=== PATIENT | female | born 2000 | race Caucasian/White ===

== ENCOUNTER 2024-01-11 18:40 | Emergency (ER) | payer OTHER, SELFPAY ==
[2024-01-11 19:10] VITALS: BP 122/81; PULSE 81; RESP 16; TEMP 36.7; O2SAT 100
--- NOTE | 2024-01-11 19:30 | ED.EAR ---
HPI - Ear Problem General Chief complaint: Ear Stated complaint: ear pain Time Seen by Provider: 01/11/24 19:20 Source: patient, family, RN notes reviewed and old records reviewed Mode of arrival: ambulatory Limitations: no limitations History of Present Illness HPI Narrative: 23 year old female accompanied by mother presents to express care with complaints of right ear pain starting today with some runny nose for the past 2 weeks.Patient reports that she has not had any fevers, chills or body aches, denies any cough or sore throat. Patient is breast feeding and has not taken any medications for her symptoms. MD Complaint: ear pain Location: right ear Severity: moderate Associated symptoms ear: rhinorrhea and other (ear pain) Treatment prior to arrival: none Related Data Allergies Allergy/AdvReac Type Severity Reaction Status Date / Time Sulfa (Sulfonamide Allergy Swelling Verified 01/11/24 19:26 Antibiotics) ciprofloxacin [From Cipro] AdvReac Severe Rash Verified 01/29/23 14:17 bactrim Allergy Severe Rash Uncoded 01/29/23 14:17 Review of Systems Review of Systems: CONSTITUTIONAL: Denies malaise, chills, sweats, or fever. EYES: Denies visual changes, redness, or discharge. ENT: Reports rhinorrhea, congestion, no sinus pain,right otalgia and no sore throat. CARDIOVASCULAR: Denies chest pain, palpitations, or edema. RESPIRATORY: Reports no cough.? Denies dyspnea. GASTROINTESTINAL: Denies abdominal pain, nausea, vomiting, diarrhea SKIN: Denies rash or itching. MUSCULOSKELETAL: Denies myalgia. NEUROLOGIC: Denies headache. All systems reviewed & are unremarkable except as noted in HPI and below PMFSH Past Medical History Medical History Hypertension in Surgical History Surgical History History of placement of ear tubes as child Previous section Social History Social History Smoking status: Unknown if ever smoked Alcohol intake: current Substance use: never Substance use type: does not use Lack of Transportation: No Lack of Food: Never True Current Housing: I Have Housing Concerned About Future Housing: No Difficulty Paying Gas/Electric Bills: No Difficulty Paying for Meds: No Currently Unemployed: No Difficulty w/ Childcare or Family Care: No Living arrangements: with family Occupation/Education: occupation Gender identity (if verbalized by the patient): Female Sexual Orientation (if Verbalized by the Patient): Straight or Heterosexual Comments At time of signature, agree with nursing past medical, surgical, social and family history. There is no relevant family history pertinent to the presenting complaint Exam Narrative: GENERAL: Well-appearing, well-nourished, and in no acute distress. HEAD: Normocephalic EYES: PERRLA, conjunctivae clear ENT: Nares clear, turbinates edematous and erythematous, clear discharge. Mucous membranes moist Right TM red with purulent drainage ear canal red and inflamed.Left TM pearly villa with dull light reflex bilaterally; no tragal tenderness. Oropharynx erythematous without lesions. Tonsils not enlarged and without exudate, no drooling, no hoarseness, no trismus, uvula midline.post nasal drainage NECK: Supple. No lymphadenopathy CHEST: Clear to auscultation, breath sounds equal. No wheezing, rhonchi, rales, or stridor. No respiratory distress, speaks in full sentences.SAO2 100% on room air HEART: Regular rate and rhythm. No murmur heard. SKIN: Warm, dry, no rash. NEURO: Alert and oriented x3. PSYCH: Normal mood and affect Course Course Emergency Course: Patient is aware of diagnosis, understands and agrees to treatment plan.? Anticipatory guidance given.? Patient agrees to follow-up as directed and is aware of reasons to s
== END 2024-01-11 19:41 | disposition home or self-care (01) ==
PROVIDERS: Emergency Provider Registered Nurse; PCP Physician Assistant Medical
DX: H60.91 Unspecified otitis externa, right ear (principal); H66.91 Otitis media, unspecified, right ear
CPT/HCPCS: 99213; G0463

== ENCOUNTER 2024-12-17 08:33 | Emergency (ER) | payer BC, SELFPAY ==
--- OUTSIDE RECORDS SUMMARY | 2024-12-17 08:35 | XMS_ITS | Clinical Summary ---
Author Organization [facility] Address [address] [place] [address] Care Team Providers Care Newspaper Reporter Name Role Phone Unavailable Primary Care Provider Unavailabl e Source Comments [facility],non-owned Affiliates and Associated Physician Practices is amultiple site organization consisting of ambulatory clinics and hospital sitesin [place], [place], [place] and [place]. This disclosure is being madepursuant to the Care Everywhere program and may not contain all information available regarding this patient. Last updated 18.[facility] Allergies Active Allergy Reactions Criticality Noted Date Comments Sulfacetamide Urticaria,Rash,Swelling Medium 3 Medications * Be aware that medications may not be up to date on this document. Alwaysverify current medications with the patient. Vit-Fe Fumarate-FA ( vitamin) 28-0.8 MG tablet Take 1 (one) tablet by mouth once daily Active aspirin (Aspirin) 81 MG chew tablet Take 1 (one) tablet by mouth once daily Active labetalol (Normodyne; Trandate) 200 MG tablet Take 1 (one) tablet by mouth every 12 hours Active MAGNESIUM-POTASS IUM PO Active Active Problems Problem Noted Date Diagnosed Date [facility] Pre-existing essential hyper tension complicating in second trimester 03/31/2023 Social History Tobacco Use Types Packs/Day Years Used Date Smoking Tobacco: Never Assessed Tobacco Cessation:Counseling Given: Not Answered Comments No Sex and Gender Information Value Date Recorded Sex Assigned at Not on file Legal Sex Female 1:35 PM CDT Gender Identity Not on file Sexual Orientation Not on file Last Filed Vital Signs Vital Sign Reading Time Taken Comments Blood Pressure 143/89 03/24/2023 2:30 PM FIRE CAPTAIN Pulse 71 03/24/2023 2:30 PM FIRE CAPTAIN Temperature - - Respiratory Rate - - Oxygen Saturation - - Inhaled Oxygen Concentration - - Weight 76.8 kg (169 lb 6.4 oz) 03/24/2023 2:30 P M FIRE CAPTAIN Height 163.8 cm (5' 4.5) 03/24/2023 2:30 PM FIRE CAPTAIN Body Mass Index 28.63 03/24/2023 2:30 PM FIRE CAPTAIN Plan of Treatment Health Maintenance Due Date Last Done Comments HIV SCREENING 2013 HPV VACCINE (1 - 3-dose series) 2013 HEPATITIS C SCREENING 04/04/2016 DTAP/TDAP/TD VACCINES (1 - Tdap) 2017 HEPATITIS B VACCINE (1 of 3 - 19+ 3-dose series) 2017 PAP SMEAR 2019 COVID-19 VACCINE (3 - 2023-2 5 season) 2024 08/25/2020, 08/04/2020 DEPRESSION SCREENING 05/10/2024 INFLUENZA VACCINE (#1) 2025 ZOSTER VACCINE (1 of 2) 2048 HIB VACCINE Aged Out No longer eligi ble based on patient's age to complete this topic MENINGOCOCCAL (Group B) VACCINE SHARED DECISION-MAKING Aged Out No longer eligible based on patient's age to complete this topic MENINGOCOCCAL GROUPS A/C/Y/W VACCINE Aged Out No longer eligible b ased on patient's age to complete this topic PNEUMOCOCCAL VACCINE Aged Out No long er eligible based on patient's age to complete this topic Insurance [employer]
--- OUTSIDE RECORDS SUMMARY | 2024-12-17 08:35 | XMS_ITS | Clinical Summary ---
Author Organization [facility] Address [facility] [address] [place] [address] Care Team Providers Care Atm Mechanic Name Role Phone Ann Morocho PA-C Primary Care Provider [phone] Allergies Active Allergy Reactions Criticality Noted Date Comments Sulfa Antibiotics Rash Low 09/11/2022 Sulfacetamide Rash,Swelling,Hives Medium 03/22/2023 Medications vitamin, low iron, ( VITAMIN WITH IRON) 27-0.8 MG tablet Take 1 tablet by mouth daily. Active labetalol (NORMODYNE) 200 MG tablet Take 1 tablet (200 mg total) by mouth 2 (two) times daily. Active gabapentin (NEURONTIN) 300 MG capsule Take 1 capsule (300 mg total) by mouth every 8 (eight) hours. 12 capsule 07/25/2023 Active Active Problems Problem Noted Date Diagnosed Date ([facility]) 07/21/2023 Non-reassuring heart t ones complicating , antepartum ([facility]) 07/19/2023 Encounters Date Type Department Care Team Description 11/23/2024 8:15 AM CDT - 11/23/2024 11:59 PM CDT Hospital Encounter [facility] [address] [place] [address] Radha Perez MD Discharge Disposition: Home or Self Care (Routine Discharge) 11/23/2024 Orders Only [facility] [address] [place] [address] Radha Perez MD 11/23/2024 Travel from Last 3 Months Family History Relation Status Comments Father Alive Mother Alive Social History Tobacco Use Types Packs/Day Years Used Date Smoking Tobacco: Never Smokeless Tobacco: Never Tobacco Cessation:Counseling Given: Not Answered Alcohol Use Standard Drinks/Week Comments Yes 0 (1 standard drink = 0.6 oz pur e alcohol) occ Comments No Sex and Gender Information Value Date Recorded Sex Assigned at Female 11/23/2024 8:11 AM CDT Legal Sex Female 8:16 PM CDT Gender Identity Not on file Sexual Orientation Not on file Last Filed Vital Signs Vital Sign Reading Time Taken Comments Blood Pressure 140/82 07/28/2023 10:45 AM CDT Pulse 90 07/28/2023 10:45 AM CDT Temperature 36.9 C (98.5 F) 07/28/2023 10:45 AM CDT Respiratory Rate 18 07/25/2023 8:52 AM CDT Oxygen Saturation 96% 07/28/2023 10:45 AM CDT Inhaled Oxygen Concentration - - Weight 83 kg (183 lb) 07/21/2023 10:42 PM CDT Height 163.8 cm (5' 4.5) 07/21/2023 10:42 PM CD T Body Mass Index 30.93 07/21/2023 10:42 PM CDT Plan of Treatment Health Maintenance Due Date Last Done Comments Cervical Cancer Screening Pa p Smear (Age 21 to 29) Every 3 Years 1998 Cervical Cancer Screening 1998 Annual Physical 2001 HPV Vaccines (1 - 3-dose series) 2013 DTaP, Tdap and Td Vaccines ( 1 - Tdap) 2017 Hepatitis B Vaccines (1 of 3 - 19+ 3-dose series) 2017 COVID-19 Vaccine (2023-2 5 season) 2024 08/25/2020, 08/04/2020 Meningococcal Vaccine Completed 06/21/2015 Hepatitis C Completed 01/05/2023 Meningococcal B Vaccine Aged Out No l onger eligible based on patient's age to complete this topic Pneumococcal Vaccine: Pediatrics (0 to 5 Years) and At-Risk Patients (6 to 49 Years) Aged Out No longer eligible b ased on patient's age to complete this topic RSV Immunizations Under 20 Months Aged Out No longer eligible b ased on patient's age to complete this topic Procedures Procedure Name Priority Date/Time Associated Diagnosis Comments MISCELLANEOUS LAB TEST Routine 8:29 AM CDT care, subsequent , first trimester (HHS/HCC) HEPATITIS C ANTIBODY Routine 01/05/2023 from Last 3 Months or Most Recently Relevant to Health Maintenance Results * MISCELLANEOUS LAB TEST (11/23/2024 8:29 AM CDT) TEST NAME: RENATA 11/23/2024 8:30 AM CDT [facility] SPECIMEN TYPE HIDE 11/23/2024 8:30 AM CDT [facility] TEST RESULT: FOR COLLECTION PURPOSES ONLY 11/23/2024 8:32 AM CDT [facility] 11/23/2024 8:29 AM CDT us Radha Perez MD LABORATORY Final Resul t [facility] [address] [place] [address], * HEPATITIS C ANTIBODY (01/05/2023) HEPATITIS C AB non-reacti ve us Default History Genericprovider LABORATORY Final Result from Last 3 Months or Most Recently Relevant to Health Maintenance Insurance [facility] Advance Directives * Full Code (Latest Code Status on File) Date Activated Date Inactivated Comments 07/22/2023 2:25 PM 07/25/2023 6:53 PM * Full Code Date Activated Date Inactivated Comments 07/21/2023 9:07 PM 07/22/2023 1:14 PM * Full Code Date Activated Date Inactivated Comments 07/19/2023 8:27 AM 07/19/2023 11:41 AM * Full Code Date Activated Date Inactivated Comments 07/16/2023 7:30 PM 07/16/2023 10:20 PM * Full Code Date Activated Date Inactivated Comments 07/13/2023 10:07 AM 07/13/2023 12:50 PM Care Teams Atm Mechanic Relationship Specialty Start Date End Date Ann Morocho PA-C [address] [place] [address] [address] [place] [address] PCP - General PHYSICIAN CUT PRESS OPERATOR 01/22/23
[2024-12-17 08:41] VITALS: BP 140/94; PULSE 89; RESP 18; TEMP 36.1; O2SAT 100
[2024-12-17 08:52] LABS: EDUAAPPEAR Clear; EDUABILI Negative (Negative); EDUABLOOD Trace (Negative); EDUACOLOR1 Yellow; EDUAGLUCOSE Negative (Negative); EDUAKETONE Negative (Negative); EDUALEUKO 1+ (Negative); EDUANITRATE Negative (Negative); EDUAPH 7.0; EDUAPROTEIN Negative (Negative); EDUASPGRAVITY 1.015; EDUAUROBILI 0.2
--- NOTE | 2024-12-17 08:52 | ED_ITS ---
HPI - Female Genitourinary General Chief complaint: Urogenital-Female Stated complaint: UTI Time Seen by Provider: 12/17/24 08:52 Source: patient and RN notes reviewed Mode of arrival: ambulatory Limitations: no limitations History of Present Illness HPI Narrative: 24-year-old female presented for complaint of burning with urination, frequency and urgency. Onset 2 days. States last night symptoms were worse causing her difficulty sleeping due to the sensation that she needed to urinate. Patient endorses nausea and vomiting which she relates to . Denies hematuria, abdominal pain, flank pain, constipation, diarrhea, fevers or chills. Denies vaginal bleeding. Patient is 15 weeks gestation. Related Data Allergies Allergy/AdvReac Type Severity Reaction Status Date / Time ciprofloxacin (From Cipro) Allergy Mild Rash Verified 12/17/24 08:35 Sulfa (Sulfonamide AdvReac Intermediate Swelling Verified 12/17/24 08:35 Antibiotics) sulfamethoxazole (From AdvReac Intermediate Swelling Verified 12/17/24 08:35 Bactrim) trimethoprim (From Bactrim) AdvReac Intermediate Swelling Verified 12/17/24 08:35 Review of Systems Review of Systems: CONSTITUTIONAL: Denies body aches, fever, chills, or sweats. CARDIOVASCULAR: Denies chest pain, palpitations, or edema. RESPIRATORY: Denies cough or dyspnea. GASTROINTESTINAL: Denies abdominal pain, reports vomiting, nausea GENITOURINARY: Reports dysuria, frequency, urgency, denies hematuria, flank pain, discharge SKIN: Denies rash, itching, or wounds. MUSCULOSKELETAL: Denies back pain or myalgia. [facility] Past Medical History Medical History Hypertension in Surgical History Surgical History Previous section History of placement of ear tubes as child Social History Social History Social History: 02/18/24 very confident with medical forms Smoking status: Unknown if ever smoked Alcohol intake: current Substance use: never Substance use type: does not use Do You Feel Safe in your Home?: Yes Lack of Transportation: No Lack of Food: Never True Current Housing: I Have Housing Concerned About Future Housing: No Difficulty Paying Gas/Electric Bills: No Difficulty Paying for Meds: No Currently Unemployed: No Education: Master's Degree or Higher Difficulty w/ Childcare or Family Care: No Living arrangements: with family Occupation/Education: occupation Gender identity (if verbalized by the patient): Female Sexual Orientation (if Verbalized by the Patient): Straight or Heterosexual Comments At time of signature, I have reviewed and agree with nursing past medical, surgical, social and family history unless otherwise noted. Please see nursing chart for further information. There is no relevant family history pertinent to the presenting complaint Exam Narrative: GENERAL: Well-appearing and in no acute distress. ENT: Mucous membranes pink and moist. NECK: Normal AROM. Supple. CHEST: No respiratory distress. Clear to auscultation. HEART: Regular rate and rhythm. ABDOMEN: Soft, nontender, nondistended, normal active bowel sounds. No CVA tenderness SKIN: Warm, dry, no rash. NEURO: No focal deficits. Alert and oriented x3. Gait steady. PSYCH: Normal affect. Course Course Emergency Course: Patient is aware of diagnosis, understands and agrees to treatment plan. Anticipatory guidance given. Patient agrees to follow-up as directed and is aware of reasons to seek care at the emergency department. Portions of this record may have been created with voice recognition software Level of Care: Express Care Visit Vital Signs Vital signs: Vital Signs Temperature 97.0 F L 12/17/24 08:41 Pulse Rate 89 12/17/24 08:41 Respiratory Rate 18 12/17/24 08:41 Blood Pressure 140/94 H 12/17/24 08:41 Pulse Oximetry 100 12/17/24 08:41 Oxygen Delivery Room Air 12/17/24 08:41 Temperature 97.0 F L 12/17/24 08:41 Pulse Rate 89 12/17/24 08:41 Respiratory Rate 18 12/17/24 08:41 Blood Pressure 140/94 H 12/17/24 08:41 Pulse Oximetry 100 12/17/24 08:41 Oxygen Delivery Room Air 12/17/24 08:41 Reviewed MDM - Female Genitourinary MDM Narrative Medical decision making narrative: Discussed physical exam findings and urine dip. Will culture. Discussed risks/benefit of antibiotic use during . Shared decision making patient elects to start antibiotic. Advised supportive measures and signs/symptoms to go to the ER. Pt is appropriate for outpt treatment and f/u. Differential Diagnosis Differential diagnosis: Likely urinary tract infection, bacterial vaginosis, vaginitis and cystitis Discharge Plan Discharge Clinical Impression: Dysuria Patient Disposition: Home Condition: Stable Instructions: Antibiotic Form, Urinary Tract Infection in (ED) Additional Instructions: Take the antibiotic as prescribed The urine will be sent of for a culture to identify what type of bacteria is causing your infection. If the culture shows that the antibiotic will not get rid of your infection, you will be notified and a new antibiotic will be called in for you. Increase water intake you will need to follow up with your PCP, call to schedule an appointment. Go to the ER for any worsening symptoms or concerns Patient Language: Khmer Prescriptions: New cephalexin 500 mg capsule 500 mg PO Q8H 5 Days Qty: 15 0RF No Action alprazolam [Xanax] 0.25 mg tablet 0.25 mg PO BID PRN (Reason: anxiety) Qty: 30 0RF escitalopram oxalate [Lexapro] 5 mg tablet 5 mg PO DAILY Qty: 30 1RF Follow-up/Referrals: Ann Morocho PA-C [Primary Care Provider] - Time of Disposition: 09:03
== END 2024-12-17 09:04 | disposition home or self-care (01) ==
PROVIDERS: Emergency Provider Nurse Practitioner Family; PCP Physician Assistant Medical
DX: O99.891 Other specified diseases and conditions complicating pregnancy (principal); Z3A.15 15 weeks gestation of pregnancy
CPT/HCPCS: 81003; 87086; 99213; G0463